=== PATIENT | female | born 2000 | race Caucasian/White ===

== ENCOUNTER → 2022-05-06 | Outpatient (CLI) | payer BC, SELFPAY ==
[2022-05-06 16:04] LABS: Absolute Lymphocyte Count 1.35 X10^3/uL (0.83-4.51); Absolute Neutrophil Count 5.4 X10^3/uL (2.0-7.7); Basophil# 0.03 X10^3/uL; Basophil% 0.4 % (0-1); Eosinophil# 0.14 X10^3/uL; Eosinophils% 1.8 % (0-5); Hematocrit 35.6 % (37-47); Hemoglobin 12.5 g/dL (12.0-15.0); Lymphocyte # 1.35 X10^3/ul (0.83-4.51); Lymphocyte % 17.8 % (19-41); Mean Corp Hgb Conc 35.1 g/dL (32-36); Mean Corpuscular Hgb 32.1 pg (27.0-32.0); Mean Corpuscular Volume 91.3 fL (81-99); Monocyte# 0.66 X10^3/uL; Monocyte% 8.7 % (0-10); NRBC Flagged by Analyzer 0 % (0-5); Neutrophil # 5.38 X10^3/uL (2.7-7.7); Neutrophil % 70.9 % (47-70); Platelet Count 259 K/mm3 (150-450); RBC Distribution Width SD 40.1 fl (35.1-43.9); White Blood Count 7.6 K/mm3 (4.4-11.0)
[2022-05-06 17:28] LABS: HIV - WCH Non-Reactive (Nonreactive); Hepatitis B Surface Antigen Non-Reactive (Nonreactive); Hepatitis C Antibody Non-Reactive (Nonreactive); Rubella IgG Reactive (Nonreactive); Syphilis Antibodies Non-reactive
[2022-05-08 09:39] LABS: V-Zoster IgG (Immunity) 334 index (Immune >165)
[2022-05-09 20:07] LABS: Chlamydia By Nucleic Acid AMP Negative (Negative)
[2022-05-10 12:01] LABS: Gonococcus By Nucleic Acid AMP Negative (Negative)
[2022-05-13 15:40] LABS: HPV Reflexed? NOT INDICATED
== END | disposition home or self-care (01) ==
PROVIDERS: PCP Physician Assistant; Referring Provider Obstetrics & Gynecology; Visit Provider Obstetrics & Gynecology
DX: Z34.81 Encounter for supervision of other normal pregnancy, first trimester (principal)
CPT/HCPCS: 36415; 85025; 86703; 86762; 86780; 86787; 86803; 86850; 86900; 86901; 87077; 87086; 87088; 87186; 87340; 87491; 87591; 88175; G0145

== ENCOUNTER → 2022-08-10 | Outpatient (CLI) | payer OTHER, SELFPAY ==
[2022-08-10 13:28] LABS: Absolute Lymphocyte Count 1.23 X10^3/uL (0.83-4.51); Basophil# 0.02 X10^3/uL; Basophil% 0.3 % (0-1); Eosinophil# 0.08 X10^3/uL; Eosinophils% 1.1 % (0-5); Hematocrit 33.7 % (37-47); Hemoglobin 11.3 g/dL (12.0-15.0); Lymphocyte # 1.23 X10^3/ul (0.83-4.51); Lymphocyte % 17.5 % (19-41); Mean Corp Hgb Conc 33.5 g/dL (32-36); Mean Corpuscular Hgb 32.8 pg (27.0-32.0); Mean Corpuscular Volume 97.7 fL (81-99); Mean Platelet Vol. 10.2 fl (6.2-12.0); Monocyte# 0.63 X10^3/uL; NRBC Flagged by Analyzer 0 % (0-5); Neutrophil # 5.01 X10^3/uL (2.7-7.7); Neutrophil % 71.4 % (47-70); Platelet Count 229 K/mm3 (150-450); RBC Distribution Width CV 12.7 % (11.6-14.6); RBC Distribution Width SD 45.3 fl (35.1-43.9); Red Blood Count 3.45 M/mm3 (4.2-5.4)
[2022-08-10 13:47] LABS: Glucose Challenge Gest 1H 50g 127 mg/dL (70-140)
== END | disposition home or self-care (01) ==
LOC: WOBLAB 13:12
PROVIDERS: PCP Physician Assistant; Visit Provider Obstetrics & Gynecology
DX: Z34.82 Encounter for supervision of other normal pregnancy, second trimester (principal)
CPT/HCPCS: 36415; 82950; 85025

== ENCOUNTER → 2022-10-26 | Outpatient (CLI) | payer OTHER, SELFPAY ==
[2022-10-26 15:10] LABS: Absolute Lymphocyte Count 1.35 X10^3/uL (0.83-4.51); Absolute Neutrophil Count 4.1 X10^3/uL (2.0-7.7); Basophil# 0.02 X10^3/uL; Basophil% 0.3 % (0-1); Eosinophils% 1.6 % (0-5); Hematocrit 37.3 % (37-47); Hemoglobin 12.7 g/dL (12.0-15.0); Lymphocyte # 1.35 X10^3/ul (0.83-4.51); Lymphocyte % 21.3 % (19-41); Mean Corpuscular Hgb 33.2 pg (27.0-32.0); Mean Corpuscular Volume 97.6 fL (81-99); Mean Platelet Vol. 10.5 fl (6.2-12.0); Monocyte# 0.69 X10^3/uL; Monocyte% 10.9 % (0-10); NRBC Flagged by Analyzer 0 % (0-5); Neutrophil # 4.14 X10^3/uL (2.7-7.7); Neutrophil % 65.1 % (47-70); Platelet Count 230 K/mm3 (150-450); RBC Distribution Width CV 12.6 % (11.6-14.6); RBC Distribution Width SD 45.3 fl (35.1-43.9); Red Blood Count 3.82 M/mm3 (4.2-5.4); White Blood Count 6.4 K/mm3 (4.4-11.0)
[2022-10-26 15:55] LABS: Syphilis Antibodies Non-reactive
== END | disposition home or self-care (01) ==
LOC: WOBLAB 14:08
PROVIDERS: PCP Physician Assistant; Visit Provider Obstetrics & Gynecology
DX: Z34.83 Encounter for supervision of other normal pregnancy, third trimester (principal)
CPT/HCPCS: 36415; 85025; 86780; 87081

== ENCOUNTER 2022-11-21 16:15 | Outpatient (CLI) | payer OTHER, SELFPAY ==
[2022-11-21 16:31] VITALS: BMI 23.5
[2022-11-21 16:40] VITALS: BP 122/78; PULSE 73
--- NOTE | 2022-11-21 17:40 | HP.PCM.OB_ITS ---
History and Physical Date of Admission: 11/21/22 HPI: 22-year-old at 40/3 weeks, NAIMA 11/18/2022 by LMP, presenting with vaginal bleeding. Patient reports that this afternoon she used the restroom and noted some blood when she wiped and a couple small blood clots in the toilet. States it is red. Since that time has had some brown discharge in her underwear. Reports intermittent contractions. Reports movement. Denies leaking of fluid. Denies headache or vision changes, chest pain or shortness of breath, nausea or vomiting, fevers or chills, diarrhea or constipation : Uncomplicated. 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 History of left breast fibroadenoma (biopsy in 2021) Surgical history: 1. Umbilical hernia repair in 2002 2. Cholecystectomy in 2016 Medications: vitamin, Zyrtec Family history: Denies history of blood clots or bleeding disorders, noncontributory Social history: Denies tobacco, alcohol, drug use Allergies: No known drug allergies Review of system: Negative otherwise stated above Physical exam: Blood pressure 122/78, pulse 73 General: No acute distress, comfortable in bed HEENT: Normocephalic/atraumatic, PERRLA Cardiorespiratory: No increased effort Abdomen: Soft, nontender, gravid Extremities: No edema Neurologic: Cranial nerves II through XII grossly intact Musculoskeletal: Moves all extremities equally Cervical exam: Per RN 1 cm, scant brown discharge on glove Visualized scant brown discharge on thin pad and underwear heart rate: 125/mod vel/+accel/no decel [place]: q3-5 min Assessment/plan: 22-year-old G1, P0 at 40/3 weeks presenting with vaginal bleeding. ? status at this time is stable and reassuring. Reactive NST. ?Patient is chucky regularly. No evidence of abruption is abdomen is soft and nontender, contractions are regular, status is reassuring. Likely early labor. ?Will rule out labor. Continue to monitor for at least 2 hours, recheck at that time. ?Vaginal bleeding appears to be resolving as there is now brown discharge. If bleeding increases we will plan for delivery. If status continues to be reassuring and cervix is unchanged, will consider discharge home. Discussed findings and plan of care with patient and her mother at bedside. Discussed with bedside RN as well.
== END 2022-11-21 19:00 | disposition home or self-care (01) ==
LOC: WPOUT 16:24 → WP 16:24
PROVIDERS: PCP Physician Assistant; Referring Provider Student in an Organized Health Care Education/Training Program; Visit Provider Student in an Organized Health Care Education/Training Program
DX: O20.9 Hemorrhage in early pregnancy, unspecified (principal); Z3A.40 40 weeks gestation of pregnancy
CPT/HCPCS: 59050

== ENCOUNTER 2022-11-22 08:25 | Inpatient (IN) | payer OTHER, SELFPAY ==
[2022-11-22] VITALS (56 sets, daily range): BP systolic 91–141; BP diastolic 58–93; PULSE 62–117; TEMP 36.2–37.1; O2SAT 81–100; BMI 23.4
--- NOTE | 2022-11-22 07:54 | PCM.HP.BLA ---
History and Physical Date of Admission: 11/22/22 HPI: 22-year-old at 40/4 weeks, NAIMA 11/18/2022 by LMP, presenting with contractions.? Worsened discomfort overnight. Reports movement.? Denies leaking of fluid.? No further bleeding. Denies headache or vision changes, chest pain or shortness of breath, nausea or vomiting, fevers or chills, diarrhea or constipation : Uncomplicated. SENIOR ACCOUNTING CLERK history: G1 current Medical history: 1.? History of left breast fibroadenoma (biopsy in 2021) Surgical history: 1.? Umbilical hernia repair in 2002 2.? Cholecystectomy in 2016 Medications: vitamin, Zyrtec Family history: Denies history of blood clots or bleeding disorders, noncontributory Social history: Denies tobacco, alcohol, drug use Allergies: No known drug allergies Review of system: Negative otherwise stated above Physical exam: Blood pressure 120/83, HR 77, O2 saturation 98% RA General: No acute distress, comfortable in bed HEENT: Normocephalic/atraumatic, PERRLA Cardiorespiratory: No increased effort Abdomen: Soft, nontender, gravid Extremities: No edema Neurologic: Cranial nerves II through XII grossly intact Musculoskeletal: Moves all extremities equally Cervical exam: 1.5/80/-1, cervix more anterior than previously reported FHR: 125/mod vel/+accel/no decel [place]: q4-5 min Assessment/Plan: 22-year-old G1 at 40/4 weeks admitted for labor. ?We will give patient breakfast ?Admit to labor and delivery for labor ?Patient is GBS negative ?Continue expectant management as patient's cervix has thinned and become more anterior overnight. We will recheck cervix around noon. Will consider augmentation with Pitocin or AROM if needed. ?Epidural at any time patient desires ?Discussed plan of care with patient, partner, mother and bedside RN. All questions answered.
[2022-11-22] MEDS: Lactated Ringers 1,000 ML 50 ML IV (09:10)
[2022-11-22 09:28] LABS: Absolute Neutrophil Count 8.2 X10^3/uL (2.0-7.7); Basophil# 0.03 X10^3/uL; Basophil% 0.3 % (0-1); Eosinophil# 0.11 X10^3/uL; Hematocrit 38.4 % (37-47); Hemoglobin 13.9 g/dL (12.0-15.0); Lymphocyte % 14.8 % (19-41); Mean Corp Hgb Conc 36.2 g/dL (32-36); Mean Corpuscular Hgb 34.3 pg (27.0-32.0); Mean Corpuscular Volume 94.8 fL (81-99); Mean Platelet Vol. 10.7 fl (6.2-12.0); Monocyte# 0.78 X10^3/uL; Monocyte% 7.2 % (0-10); NRBC Flagged by Analyzer 0 % (0-5); Neutrophil # 8.24 X10^3/uL (2.7-7.7); Neutrophil % 76.3 % (47-70); Platelet Count 184 K/mm3 (150-450); RBC Distribution Width CV 12.1 % (11.6-14.6); RBC Distribution Width SD 42.2 fl (35.1-43.9); Red Blood Count 4.05 M/mm3 (4.2-5.4); White Blood Count 10.8 K/mm3 (4.4-11.0)
[2022-11-22] MEDS: LACTATED RINGERS 500 ML 999 ML IV (09:58)
[2022-11-22 10:11] LABS: Syphilis Antibodies Non-reactive
[2022-11-22 12:07] LABS: Prothrombin Time (Protime)PT. 13.2 SECONDS (11.7-14.9)
[2022-11-22 12:08] LABS: Fibrinogen 430 mg/dl (203-444); Partial Thromboplast Time 27.8 Seconds (24.1-36.2)
[2022-11-22] MEDS: fentaNYL-bupivacaine (epidural) 100 ML BAG EPIDURAL ×3 (12:36→21:27)
[2022-11-22] MEDS: Lactated Ringers 1,000 ML 200 ML IV ×2 (16:10→21:26)
--- NOTE | 2022-11-22 17:18 | PCM.PN.OB ---
Subjective Subjective Patient comfortable now with epidural. Objective Data Objective Data Vital Signs: Vital Signs Temp Pulse BP Pulse Ox 97.6 F L 72 106/58 L 96 11/22/22 16:25 11/22/22 16:25 11/22/22 16:25 11/22/22 14:02 Weight: 71.94 kg Body Mass Index (BMI) 23.4 Intake & Output: Intake and Output for Last 24 Hours 11/20/22 11/21/22 11/22/22 23:59 23:59 23:59 Intake Total 1500 / 1500 Output Total 600 / 600 Balance 900 / 900 Lab / Micro Data Attestation: I reviewed the patient's lab results. Result Diagrams: 11/22/22 09:10 Labs: Laboratory Results - last 24 hr 11/22/22 09:10: WBC 10.8, RBC 4.05 L, Hgb 13.9, Hct 38.4, MCV 94.8, MCH 34.3 H, MCHC 36.2 H, RDW Std Deviation 42.2, RDW Coeff of Laurent 12.1, Plt Count 184, MPV 10.7, Immature Gran % (Auto) 0.400, Neut % (Auto) 76.3 H, Lymph % (Auto) 14.8 L, [place] % (Auto) 7.2, Eos % (Auto) 1.0, Baso % (Auto) 0.3, Absolute Neuts (auto) 8.2 H, Absolute Lymphs (auto) 1.60, Nucleated RBC % 0 11/22/22 09:10: Blood Type B POSITIVE, Antibody Screen NEGATIVE 11/22/22 09:10: Syphilis Total Ab Non-reactive 11/22/22 11:37: PT 13.2, INR 1.0, APTT 27.8, Fibrinogen 430 Physical Exam Const alert, oriented x3 and no apparent distress HEENT normocephalic Resp normal respiratory effort Cardio regular rate GI non-tender and non-distended Inspection: gravid Narrative: /-1 AROM clear fluid FSE placed Extremity no pedal edema Neuro no focal motor deficits and no sensory deficits noted NST FHR Rate Baby A Baseline: 125 Variability:: Moderate Accelerations:: 15 x 15 Decelerations:: Late (x1 after AROM) Uterine Activity:: q4-5 Assessment & Plan (1) : PLAN: 22-year-old G1 at 40/4 weeks admitted for labor. Patient now comfortable with epidural. AROM, clear fluid. FSE placed. Continue expectant management. If no cervical change, will augment with Pitocin.
[2022-11-22] MEDS: Ondansetron 4 MG/2 ML Vial IV (18:36)
[2022-11-22] MEDS: 0.9% Saline Lock 10 ML Syringe IV (18:37)
[2022-11-23] VITALS (26 sets, daily range): BP systolic 91–128; BP diastolic 56–81; PULSE 68–103; RESP 15–16; TEMP 35.8–37.7; O2SAT 96–100
[2022-11-23] MEDS: Ondansetron 4 MG/2 ML Vial IV ×2 (00:20→05:08)
[2022-11-23] MEDS: fentaNYL-bupivacaine (epidural) 100 ML BAG EPIDURAL ×2 (01:52→06:23)
[2022-11-23] MEDS: Lactated Ringers 1,000 ML 200 ML IV (02:30)
[2022-11-23] MEDS: Mag Hydrox/Al Hydrox/Simeth 30 ML UDC PO (04:20)
[2022-11-23] MEDS: LACTATED RINGERS 500 ML 999 ML IV (04:33)
[2022-11-23] MEDS: 0.9% Saline Lock 10 ML Syringe IV ×3 (05:08→20:23)
--- NOTE | 2022-11-23 07:14 | PCM.PN.OB ---
Objective Data Objective Data Patient comfortable in bed. Vital Signs: Vital Signs Temp Pulse BP Pulse Ox 99.0 F 82 128/69 H 97 11/23/22 06:15 11/23/22 06:15 11/23/22 06:15 11/23/22 04:05 Weight: 71.94 kg Body Mass Index (BMI) 23.4 Intake & Output: Intake and Output for Last 24 Hours 11/21/22 11/22/22 11/23/22 23:59 23:59 23:59 Intake Total 2500 / 2500 1000 / 1000 Output Total 1200 / 1200 550 / 550 Balance 1300 / 1300 450 / 450 Lab / Micro Data Result Diagrams: 11/22/22 09:10 Labs: Laboratory Results - last 24 hr 11/22/22 09:10: WBC 10.8, RBC 4.05 L, Hgb 13.9, Hct 38.4, MCV 94.8, MCH 34.3 H, MCHC 36.2 H, RDW Std Deviation 42.2, RDW Coeff of Laurent 12.1, Plt Count 184, MPV 10.7, Immature Gran % (Auto) 0.400, Neut % (Auto) 76.3 H, Lymph % (Auto) 14.8 L, [place] % (Auto) 7.2, Eos % (Auto) 1.0, Baso % (Auto) 0.3, Absolute Neuts (auto) 8.2 H, Absolute Lymphs (auto) 1.60, Nucleated RBC % 0 11/22/22 09:10: Blood Type B POSITIVE, Antibody Screen NEGATIVE 11/22/22 09:10: Syphilis Total Ab Non-reactive 11/22/22 11:37: PT 13.2, INR 1.0, APTT 27.8, Fibrinogen 430 Physical Exam Const alert, oriented x3 and no apparent distress Resp normal respiratory effort Cardio regular rate GI soft to palpation, non-tender and non-distended Narrative: 10/100/+2, asynclitic brow presentation, ear palpated maternal right, right brow maternal left Extremity no pedal edema Neuro no focal motor deficits and no sensory deficits noted NST FHR Rate Baby A Baseline: 145 Variability:: Moderate Accelerations:: 15 x 15 Decelerations:: Variable FHR Category:: Category II Uterine Activity:: q3-4 min Assessment & Plan (1) Brow presentation of fetus: PLAN: 22-year-old G1 at 40/5 weeks admitted for labor. Now diagnosed with brow presentation. Brow presentation at this stage unlikely to be transitional and temporary. Patient has not had a vaginal delivery before. Recommend section. All risk, benefits, alternatives discussed with the patient. Risks include but are not limited to: Risk of bleeding to the point of transfusion, infection, injury to surrounding tissue including bowel/bladder potentially requiring prolonged Aguilar catheter use, VTE, ICU admission. Patient aware and consented. 2 g Ancef and 500 mg azithromycin preoperatively. Proceed for section in an urgent but not emergent manner. All questions answered. Reviewed plan of care with patient, partner, bedside RN.
[2022-11-23] MEDS: Cefazolin 2 GM in 0.9% Normal Saline 100 ML IV ×2 (07:40→17:20)
--- NOTE | 2022-11-23 08:29 | OP.PCM_ITS ---
Maternal Data Information Final NAIMA: 11/18/22 Details Operative Information Date of Procedure: 11/23/22 Pre-Operative Diagnosis: Pereira intrauterine at term, brow presentation Post-Operative Diagnosis: Pereira intrauterine at term, brow presentation Indications Narrative: 22-year-old G1 at 40/5 weeks admitted for labor.? Now diagnosed with brow presentation during second stage of labor.? Brow presentation at this stage unlikely to be transitional and temporary.? Patient has not had a vaginal delivery before.? Recommend section.? All risk, benefits, alternatives discussed with the patient.? Risks include but are not limited to: Risk of bleeding to the point of transfusion, infection, injury to surrounding tissue in cluding bowel/bladder potentially requiring prolonged Aguilar catheter use, VTE, ICU admission.? Patient aware and consented.? 2 g Ancef and 500 mg azithromycin preoperatively.? Proceed for section in an urgent but not emergent manner.? All questions answered. Classification: KOBE Procedure Type: low transverse Estimated Blood Loss: 800cc Fluids Replaced: 1000cc Findings Description of Procedure: Procedure: Patient taken the operating room and epidural dose. Patient placed in the supine position with a left lateral tilt. Prepped and draped in the usual sterile fashion. Pfannenstiel skin incision made with scalpel and underlying subcutaneous tissue dissected away bluntly. Fascia nicked on either side of midline and extended bluntly. Evelin clamps placed at the superior fascial edge which was tented up and underlying rectus muscles were dissected off bluntly and sharply and midline using Carvalho scissors. Evelin clamps moved to inferior fascial edge which was tented up and underlying rectus muscles were dissected off in a similar fashion. Rectus muscles were superiorly with hemostats. Peritoneum entered bluntly. Bladder blade placed. Low transverse uterine incision made with scalpel. Meconium fluid noted. Left shoulder and arm noted at the level of the hysterotomy. Hand placed into the uterine cavity and with assistance of hand from below from Dr. Antwan Hill, head was elevated to the level of the hysterotomy. Head delivered followed by body. No nuchal cord. Cord clamped and cut. Baby to nursing. Manual extraction of the placenta. Uterus cleared of all clots. Hysterotomy closed with a running stitch. Ekrqyz-rp-[id number] stitch placed at the right angle for hemostasis. Second vertical imbricating stitch placed. Hysterotomy hemostatic. Uterus replaced into the abdominal cavity and hemostasis confirmed. Asher placed along the hysterotomy closure. Peritoneum closed with a running stitch. Fascia closed with a running stitch. Subcutaneous tissue reapproximated with suture. Skin closed with running subcuticular stitch. At the end of the procedure all needle, lap, sponge counts were correct. UOP: 300cc urine, clearing to yellow (blood tinged on presentation to OR) Plan for Ancef for 24 hours prophylactically due to hand from below. Cord Entanglement: None A Gender: Female (1 minute): 7 (5 minute): 9 Complications Complications: None
[2022-11-23] MEDS: Ketorolac 30 MG/ML Syringe IV ×3 (09:10→20:23)
[2022-11-23] MEDS: Oxytocin 15 Units/NS 250ml 15 UNITS/250 ML IV.SOLN 83 UNITS IV (10:07)
[2022-11-23] MEDS: Acetaminophen 500 MG Tablet 1000 MG PO ×3 (12:00→23:24)
[2022-11-23] MEDS: Lactated Ringers 1,000 ML 100 ML IV (12:00)
[2022-11-23] MEDS: Loratadine 10 MG Tablet PO (14:33)
--- NOTE | 2022-11-23 14:50 | NURSING ---
epidural cath removed at this time. sulema care done and pt repositioned.
[2022-11-23] MEDS: Enoxaparin 40 MG/0.4 ML Syringe SC (20:23)
[2022-11-24] MEDS: Cefazolin 2 GM in 0.9% Normal Saline 100 ML IV (01:44)
[2022-11-24] MEDS: Ketorolac 30 MG/ML Syringe IV (02:28)
[2022-11-24] MEDS: 0.9% Saline Lock 10 ML Syringe IV (02:28)
[2022-11-24 04:02] VITALS: BP 113/73; PULSE 87; RESP 15; TEMP 36.6; O2SAT 94
[2022-11-24] MEDS: Acetaminophen 500 MG Tablet 1000 MG PO ×3 (05:14→19:15)
[2022-11-24 05:34] LABS: Hemoglobin 10.4 g/dL (12.0-15.0); Mean Corp Hgb Conc 33.5 g/dL (32-36); Mean Corpuscular Hgb 32.9 pg (27.0-32.0); Mean Corpuscular Volume 98.1 fL (81-99); Mean Platelet Vol. 10.8 fl (6.2-12.0); Platelet Count 150 K/mm3 (150-450); RBC Distribution Width CV 12.5 % (11.6-14.6); RBC Distribution Width SD 44.9 fl (35.1-43.9); Red Blood Count 3.16 M/mm3 (4.2-5.4); White Blood Count 14.4 K/mm3 (4.4-11.0)
[2022-11-24 08:12] VITALS: BP 104/67; PULSE 76; RESP 16; TEMP 36.4
--- NOTE | 2022-11-24 08:27 | PCM.PN.OB ---
Subjective Subjective Pain is well controlled. Lochia minimal. Breast-feeding. Objective Data Objective Data Vital Signs: Vital Signs Temp Pulse Resp BP Pulse Ox O2 Del Method 97.6 F L 76 16 104/67 94 Room Air 11/24/22 08:12 11/24/22 08:12 11/24/22 08:12 11/24/22 08:12 11/24/22 04:02 11/24/22 08:12 Oxygen Delivery Method Room Air Weight: 71.94 kg Body Mass Index (BMI) 23.4 Intake & Output: Intake and Output for Last 24 Hours 11/22/22 11/23/22 11/24/22 23:59 23:59 23:59 Intake Total 2500 / 2500 3959 / 3959 110 / 110 Output Total 1200 / 1200 1950 / 1950 900 / 900 Balance 1300 / 1300 2008 / 2008 -790 / -790 Lab / Micro Data Attestation: I reviewed the patient's lab results. Result Diagrams: 11/24/22 05:15 Labs: Laboratory Results - last 24 hr 11/24/22 05:15: WBC 14.4 H, RBC 3.16 L, Hgb 10.4 L, Hct 31.0 L, MCV 98.1, MCH 32.9 H, MCHC 33.5 D, RDW Std Deviation 44.9 H, RDW Coeff of Laurent 12.5, Plt Count 150, MPV 10.8 Physical Exam Const alert, oriented x3 and no apparent distress HEENT normocephalic Head and Scalp: atraumatic Neck full ROM Resp normal respiratory effort Cardio regular rate GI normal to inspection, nondistended, normoactive bowel sounds GI Narrative: Uterus 2 cm below umbilicus, dressing clean and dry Back/Spine normal ROM Extremity normal to inspection Extremity Narrative: Minimal pedal edema Neuro no focal motor deficits and no sensory deficits noted Psych mental status grossly normal and affect normal Assessment & Plan (1) Delivery by section: PLAN: Postop day 1 status post primary section for breech presentation. Patient's pain is well controlled. Breast-feeding. Acute blood loss anemia secondary to surgery, low iron supplement on home-going. Reviewed postoperative wound care and restrictions. Discharge home tomorrow. (2) Other acute postprocedural pain: (3) Brow presentation of fetus:
[2022-11-24] MEDS: Ibuprofen 600 MG Tablet PO ×3 (09:02→20:33)
[2022-11-24] MEDS: Loratadine 10 MG Tablet PO (10:28)
[2022-11-24] MEDS: Senna/Docusate Sodium 1 Tablet PO (10:28)
[2022-11-24] MEDS: Enoxaparin 40 MG/0.4 ML Syringe SC (10:29)
[2022-11-24 14:34] VITALS: BP 110/71; PULSE 84; RESP 16; TEMP 36.6; O2SAT 97
[2022-11-24 19:08] VITALS: BP 112/69; PULSE 83; RESP 16; TEMP 36.6
[2022-11-24] MEDS: oxyCODONE 5 MG Tablet PO (21:41)
[2022-11-25] MEDS: Acetaminophen 500 MG Tablet 1000 MG PO ×3 (00:58→12:47)
[2022-11-25 01:00] VITALS: BP 112/65; PULSE 75; RESP 15; TEMP 36.7; O2SAT 95
[2022-11-25] MEDS: Ibuprofen 600 MG Tablet PO ×3 (02:48→16:35)
[2022-11-25] MEDS: oxyCODONE 5 MG Tablet PO ×3 (06:47→15:08)
[2022-11-25 08:00] VITALS: BP 118/78; PULSE 79; RESP 16; TEMP 36.8; O2SAT 97
--- NOTE | 2022-11-25 08:21 | PCM.PN.OB ---
Subjective Subjective Patient feeling well. Sore but pain medications are helping. Working on breast-feeding. Objective Data Objective Data Vital Signs: Vital Signs Temp Pulse Resp BP Pulse Ox O2 Del Method 98.2 F 79 16 118/78 97 Room Air 11/25/22 08:00 11/25/22 08:00 11/25/22 08:00 11/25/22 08:00 11/25/22 08:00 11/25/22 08:00 Oxygen Delivery Method Room Air Weight: 71.94 kg Body Mass Index (BMI) 23.4 Intake & Output: Intake and Output for Last 24 Hours 11/23/22 11/24/22 11/25/22 23:59 23:59 23:59 Intake Total 3959 / 3959 110 / 110 Output Total 1950 / 1950 1300 / 1300 Balance 2008 -1190 / -1190 Lab / Micro Data Attestation: I reviewed the patient's lab results. Result Diagrams: 11/24/22 05:15 Physical Exam Const alert, oriented x3 and no apparent distress HEENT normocephalic Head and Scalp: atraumatic Neck full ROM Resp normal respiratory effort Cardio regular rate GI normal to inspection, nondistended, normoactive bowel sounds GI Narrative: Uterus 2 cm below umbilicus, dressing clean and dry Back/Spine normal ROM Extremity normal to inspection Extremity Narrative: Minimal pedal edema Neuro no focal motor deficits and no sensory deficits noted Psych mental status grossly normal and affect normal Assessment & Plan (1) Delivery by section: PLAN: Postop day 2 status post primary section for breech presentation. Patient's pain is well controlled. Breast-feeding. Acute blood loss anemia secondary to surgery, low iron supplement on home-going. Reviewed postoperative wound care and restrictions. Discharge home today. (2) Other acute postprocedural pain: (3) Brow presentation of fetus:
--- NOTE | 2022-11-25 08:24 | DCINST_ITS ---
Discharge Instructions Diet Discharge Diet: No restrictions Activity Discharge Activity: Return to Normal Activity and May Shower May resume sexual activity in: 4-6 weeks Weight Bearing Status: Weight bearing as tolerated Lifting Restrictions: No greater than 25 pounds Dressing / Incision Call your doctor if your incision/area has: Continuous Slow Oozing, Increased Redness and Swelling at the incision site Call your doctor if you observe: Fever of 101 or Higher, Change in Color, Inability to urinate, Using more than 1 pad per hour, Shortness of breath, Dizziness, Swelling in the ankles, Chest pain and Calf discomfort Remove Dressing in: 1 week Cleanse incision/area with: Soap & Water and Keep Dressing Clean & Dry Follow Up Care Please Follow Up With: Antwan Hill MD When: 2-week and 6-week visit Test Results: Test results from this visit will be discussed in further detail at your follow- up appointment, if applicable. Discharge Plan Admission Admit Date/Time: 11/22/22 08:25 Primary Reason for Your Visit: section Attending Provider: Allegra Hill Primary Care Provider: Maya Deleon Discharge Orders/Prescriptions Prescriptions: New oxycodone 5 mg tablet 5 mg PO Q6H PRN (Reason: pain (scale score 7-10)) 4 Days Qty: 14 0RF Continued [id number] 1 mg Tablet 1 tab PO DAILY loratadine [Claritin] 10 mg Tablet 10 mg PO DAILY Referrals / Follow Up: Maya Deleon PA [Primary Care Provider] - Disposition Disposition (needs filled in before D/C Order can be placed): Home, Self Care
--- NOTE | 2022-11-25 08:25 | PCM.DC.SUM ---
Providers Date of Admission: 11/22/22 Primary Care Physician: JOVANA Willis Reason For Visit: PRIMARY C SECTION Diagnosis Discharge Diagnosis (1) Delivery by section: Status: Acute Plan: Postop day 2 status post primary section for breech presentation. Patient's pain is well controlled. Breast-feeding. Acute blood loss anemia secondary to surgery, low iron supplement on home-going. Reviewed postoperative wound care and restrictions. Discharge home today. (2) Other acute postprocedural pain: Status: Acute Code(s): G89.18 - Other acute postprocedural pain (3) Brow presentation of fetus: Status: Acute Code(s): O32.3XX0 - Maternal care for face, brow and chin presentation, not applicable or unspecified Medications at Discharge Home Medications loratadine 10 mg tablet (Claritin) 10 mg PO DAILY 11/21/22 [id number] 1 mg tablet 1 tab PO DAILY 11/21/22 oxycodone 5 mg tablet 5 mg PO Q6H PRN pain (scale score 7-10) 4 days #14 tabs 11/23/22 Hospital Course Summary of Care Provided Hospital Course: Admitted for labor. Prior presentation diagnosed. section. Discharged home postop day 2. Physical Exam Const alert, oriented x3 and no apparent distress HEENT normocephalic Head and Scalp: atraumatic Neck full ROM Resp normal respiratory effort Cardio regular rate GI normal to inspection, nondistended, normoactive bowel sounds GI Narrative: Uterus 2 cm below umbilicus, dressing clean and dry Back/Spine normal ROM Extremity normal to inspection Extremity Narrative: Minimal pedal edema Neuro no focal motor deficits and no sensory deficits noted Psych mental status grossly normal and affect normal Weight / BMI Weight Weight: 71.94 kg Body Mass Index (BMI) 23.4 ABG / Lab / Microbiology Data Result Diagrams: 11/24/22 05:15 D/C Instructions Discharge Diet: No restrictions May resume sexual activity in: 4-6 weeks Weight Bearing Status: Weight bearing as tolerated Call your doctor if your incision/area has: Continuous Slow Oozing, Increased Redness and Swelling at the incision site Call your doctor if you observe: Fever of 101 or Higher, Change in Color, Inability to urinate, Using more than 1 pad per hour, Shortness of breath, Dizziness, Swelling in the ankles, Chest pain and Calf discomfort Cleanse incision/area with: Soap & Water and Keep Dressing Clean & Dry Please Follow Up With: Antwan Hill MD When: 2-week and 6-week visit Meaningful Use Info Meaningful Use Diagnoses (Choose all that apply): None applicable Discharge Plan Admission Admit Date/Time: 11/22/22 08:25 Primary Reason for Your Visit: section Attending Provider: Allegra Hill Primary Care Provider: Maya Deleon Discharge Orders/Prescriptions Prescriptions: New oxycodone 5 mg tablet 5 mg PO Q6H PRN (Reason: pain (scale score 7-10)) 4 Days Qty: 14 0RF Continued coijrzxj-fgw-[id number]-FA 1 mg Tablet 1 tab PO DAILY loratadine [Claritin] 10 mg Tablet 10 mg PO DAILY Referrals / Follow Up: Maya Deleon PA [Primary Care Provider] - Disposition Disposition (needs filled in before D/C Order can be placed): Home, Self Care
[2022-11-25] MEDS: Enoxaparin 40 MG/0.4 ML Syringe SC (10:31)
[2022-11-25] MEDS: Senna/Docusate Sodium 1 Tablet PO (10:32)
[2022-11-25] MEDS: Loratadine 10 MG Tablet PO (10:51)
[2022-11-25 14:03] VITALS: BP 126/78; PULSE 76; RESP 16; TEMP 36.8; O2SAT 98
[2022-11-25 16:49] VITALS: BP 126/78; PULSE 76; RESP 16; TEMP 36.8; O2SAT 98
== END 2022-11-25 17:15 | disposition home or self-care (01) | DRG 788 ==
LOC: WPOUT 08:29 → WP 08:29
PROVIDERS: Anesthesiology; Admitting Provider Student in an Organized Health Care Education/Training Program; PCP Physician Assistant; Referring Provider Student in an Organized Health Care Education/Training Program; Visit Provider Student in an Organized Health Care Education/Training Program
DX: O76 Abnormality in fetal heart rate and rhythm complicating labor and delivery (principal); O32.3XX0 Maternal care for face, brow and chin presentation, not applicable or unspecified; O90.81 Anemia of the puerperium; Z37.0 Single live birth; Z3A.40 40 weeks gestation of pregnancy; O77.0 Labor and delivery complicated by meconium in amniotic fluid
CPT/HCPCS: 59025; 59050; 85025; 85027; 85384; 85610; 85730; 86780; 86850; 86900; 86901; 99221; J7120; A4216; G0378; J2405

== ENCOUNTER → 2023-01-04 | Outpatient (CLI) | payer OTHER, SELFPAY ==
[2023-01-07 17:14] LABS: HPV Reflexed? NOT INDICATED
== END | disposition home or self-care (01) ==
LOC: LABSPEC 11:51
PROVIDERS: PCP Physician Assistant; Visit Provider Nurse Practitioner Women's Health
DX: Z12.4 Encounter for screening for malignant neoplasm of cervix (principal)
CPT/HCPCS: 88175; G0145